=== PATIENT | female | born 1965 | race Caucasian/White ===

== ENCOUNTER 2023-01-23 15:29 | Emergency (ER) | payer OTHER, SELFPAY ==
[2023-01-23 15:35] VITALS: BP 112/80; PULSE 70; RESP 22; TEMP 36.8; O2SAT 98; BMI 37.5
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
[2023-01-23] MEDS: METHYLPREDNISOLONE SOD SUCC PF 125 MG/2 ML VIAL IM (16:01)
[2023-01-23] MEDS: KETOROLAC TROMETHAMINE 60 MG/2 ML VIAL IM (16:02)
[2023-01-23 16:07] VITALS: BP 133/80; PULSE 72; RESP 18; O2SAT 97
== END 2023-01-23 16:08 | disposition home or self-care (01) ==
PROVIDERS: Emergency Provider Emergency Medicine
DX: M54.50 Low back pain, unspecified (principal); M54.6 Pain in thoracic spine; Z79.899 Other long term (current) drug therapy
CPT/HCPCS: 96372; 99284; J2930